=== PATIENT | female | born 1955 | race Caucasian/White ===

== ENCOUNTER 2017-06-24 02:51 | Observation (INO) | payer MEDICAID, MEDICARE ==
[~2017-06-24] VITALS: Ht 162.6 cm; Wt 77.6 kg
[2017-06-24] VITALS (18 sets, daily range): BP systolic 73–120; BP diastolic 55–86
[~2017-06-24 02:51] MED LIST: BUPR-474 PO; FLUO-202 PO; HYDR-4225 PO; LEVO75TA68 PO; MONT10TA PO; ZOLP-350 PO
[2017-06-24] MEDS ORDERED: MIDAZOLAM 2 MG/2 ML VIAL IVP PRN (06:15)
[2017-06-24] MEDS ORDERED: FAMOTIDINE 20 MG TAB PO ONE (06:15)
[2017-06-24] MEDS ORDERED: EPINEPHrine HCL 30 MG/30 ML ONE (06:57)
[2017-06-24] MEDS ORDERED: GELATIN SPONGE SZ 100 ONE (06:58)
[2017-06-24] MEDS ORDERED: BUPIV/EPI 0.25% 1:200,000 50ML INFIL ONE (06:58)
[2017-06-24] MEDS ORDERED: PHENYLEPHRINE 10 MG/1 ML VIAL ONE (07:00)
[2017-06-24] MEDS ORDERED: MIDAZOLAM 2 MG/2 ML VIAL ONE (07:06)
[2017-06-24] MEDS ORDERED: fentaNYL CITR 100 MCG/2 ML AMP ONE ×4 (07:40→10:54)
[2017-06-24] MEDS ORDERED: DEXAMETHASONE SOD PHOS 10MG/ML ONE (09:00)
[2017-06-24] MEDS ORDERED: PROPOFOL EMUL(*) 10MG/ML 20 ML 160 ML ONE (09:00)
[2017-06-24] MEDS ORDERED: ONDANSETRON 4 MG/2 ML VIAL ONE (09:00)
[2017-06-24] MEDS ORDERED: ROPIVACAINE 0.2% 20 ML VIAL ONE (09:00)
[2017-06-24] MEDS ORDERED: LABETALOL HCL 100 MG/20ML VIAL ONE (09:21)
[2017-06-24] MEDS ORDERED: ROPIVACAINE 0.2% 400 MG/200ML 250 ML CONINFUS ONE (10:00)
[2017-06-24] MEDS ORDERED: ceFAZolin(*) 2GM/D5W 50ML 50 ML IVPB ONE (10:30)
[2017-06-24] MEDS ORDERED: LIDOCAINE/SOD BICARB 8.4% SYR ID ONE (10:30)
[2017-06-24] MEDS ORDERED: NORMOSOL R SOLN(*) 1000 ML BAG 1,000 ML IV PRN (10:30)
[2017-06-24] MEDS ORDERED: FLUSH 10 ML SYR IVP PRN ×2 (11:45→11:50)
[2017-06-24] MEDS ORDERED: KCL/D5LR 20 MEQ/1000 ML PREMIX 1,000 ML IV PRN ×2 (11:45→11:50)
[2017-06-24] MEDS ORDERED: PROMETHAZINE 25 MG/ML 1 ML AMP IVP PRN ×2 (11:45→11:50)
[2017-06-24] MEDS ORDERED: MAGNESIUM HYDROXIDE* 30ML UDCP PO PRN ×2 (11:45→11:50)
[2017-06-24] MEDS ORDERED: diphenhydrAMINE 25 MG CAP PO PRN ×2 (11:45→11:50)
[2017-06-24] MEDS ORDERED: ACETAMINOPHEN 500 MG TAB PO PRN ×2 (11:45→11:50)
[2017-06-24] MEDS ORDERED: KETOROLAC 30 MG/ML VIAL IVP PRN ×2 (11:45→11:50)
[2017-06-24] MEDS ORDERED: ONDANSETRON 4 MG/2 ML VIAL IVP PRN (11:45)
[2017-06-24] MEDS ORDERED: MAGNESIUM CITRATE 300 ML BTL PO PRN ×2 (11:45→11:50)
[2017-06-24] MEDS ORDERED: BISACODYL 10 MG SUPP PR PRN ×2 (11:45→11:50)
--- NOTE | 2017-06-24 13:56 | OPERATIVE REPORT 1 ---
EVENT DATE: June 24, 2017 SURGEON: Avel Velazquez MD ANESTHESIOLOGIST: Ricki Michelle MD [employer] PROFESSOR: CHRISTIANO Dillon ANESTHESIA: General with a popliteal and iliac block. 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 POSTOPERATIVE DIAGNOSIS Significant pes plano valgus deformity with recurrent hallux valgus deformity after bunion surgery and mid foot arthritis. PROCEDURE PERFORMED Calcaneal osteotomy, lateral column lengthening with iliac crest bone graft and mid foot fusion with a Lapidus procedure and a modified Williamson bunionectomy. TOURNIQUET TIME Less than 2 hours. DESCRIPTION OF PROCEDURE Patient was brought to the operating room, placed in a supine position, had a bump placed under her right hip to align the right lower extremity. She was prepped and draped in normal sterile fashion using Prevail. Sterile stockinette , sterile U drape and sterile extremity drape were placed over the lower extremity. Stockinette was then sized, rolled above knee and held with a Coban. Four towels were placed around the iliac crest. It was then prepped and draped as well using Prevail. I then placed an Ioban over top of it. Once we had the extremity drape on, I made a hole in the extremity drape, and then placed another Ioban over top of that. First we did our iliac crest bone graft 2 cm above the ASIS. Skin was incised with a 15 blade down to subcutaneous tissue. Subcutaneous tissue was bluntly dissected down to the retinaculum. Retinaculum was sharply dissected using cautery off of the insertion of the iliac crest. Two Hohmanns were placed around the iliac crest to protect it. We measured out 1.5 cm of iliac crest. An oscillating saw was then used to make a tricortical graft without any difficulty. Once that was taken, we then used a curette to take any more bone graft we needed, and we got ample amount without any difficulty. I then placed a Gelfoam with epinephrine in. We then closed the retinaculum using 2-0 Vicryl, subcutaneous tissue using 3-0 Monocryl , and skin was with lynn. I then injected Marcaine with epi into the wound. At this point, we turned the tourniquet up to 300 mmHg. My first incision was made directly over the lateral aspect of the calcaneus 45 degrees from the plantar aspect of the foot. Skin was incised with 15 blade down to subcutaneous tissue. Subcutaneous tissue was bluntly dissected, making sure that we did not get the sural nerve involved. I did not see the sural nerve when we were bluntly dissecting down. Two Hohmanns were placed across the calcaneus. Large oscillating saw was then used to transect the calcaneus completely sagittally. Once that was done, I was able to move the calcaneus about a half a centimeter or a centimeter from lateral to medial. Once I had that done, I made a small poke hole in the bottom of the heel. Two partially threaded 6.5 screws were placed across the osteotomy to hold it in place. We had good bite with both of the screws and good compression at the osteotomy site. We brought fluoroscopy in, AP and lateral, to make sure the length was correct to make sure we had a good amount of translation of the calcaneus. At this point, I turned my attention to lateral column lengthening. Incision was made directly over the lateral column, bluntly dissected. When I got there, it looks at though they had tried to already do some type of lateral column lengthening. The bone graft crumbled completely out at me, and I was not able to identify where they had actually done the osteotomy, it just looked like there was kind of bone graft around the area, or in the sinus tarsi. It was very difficult to tell. Once that was all completely debrided, I placed two Hohmanns around the lateral column. At this point, I measured 1.1 cm from the joint, and this where I made my second osteotomy in parallel to the calcaneocuboid joint. Once I had that done, I placed a lamina lavatory attendant across it, and titrated out exactly where I wanted the midfoot to lie. Once I had it in a good position, I measured about 1 cm. We then took our iliac crest graft and we modified it to make it more triangular and only be 1 cm in length. We then were able to place it in. I was not able to get it completely all the way down, but about two-thirds of the graft was placed inside the osteotomy without any difficulty, and then we placed a non-lag 3.5 screw going from the calcaneocuboid joint across into the anterior process of the calcaneus. We were able to get the screw across the graft without any difficulty and hold it in position. AP and lateral of the foot were taken. It does show that we got a very good lengthening of the lateral column, though the graft was slightly protuberant, which we then shaved down with a rongeur on the outside of the foot. Once that was done, we turned our attention to the midfoot fusion Lapidus procedure. At this point, I made an incision directly over the first TMT joint and second intermetatarsal joint, bluntly dissected, moved the extensor tendon off laterally, was able to get down to the first TMT joint and into the intermetatarsal joint, which had marked scarring throughout it, and looked as though there had been a significant injury in the past here. I had to debride this area in order to get not only the cuneiform back together, but the first metatarsal over. I then made an osteotomy through the medial cuneiform in order so I could bring the first ray back into good alignment. At this point, when I realigned that, I placed a screw from the first metatarsal into the middle cuneiform, closing the intermetatarsal gap. At this point, I felt I had really good compression, not only of the inter Lisfranc joint, but of the first MTP joint, and did not feel like I needed a second screw in this to stabilize it. I did put a second screw from the first metatarsal in the second just to keep it from derotating, and getting some better alignment. Once I had those two screws in place, I did bone graft the first TMT joint and the intercuneiform joint and intermetatarsal joint. We brought fluoroscopy in AP and lateral. I did see that I did not get across that first TMT joint, but with that screw going into the middle cuneiform going from the first, there was incredible stability and compression, did not feel I needed a screw across that joint to get it to fuse. Screws were in good position. I then turned my attention to the modified Williamson, made an incision directly over the medial aspect of the first MTP joint. Skin was incised with a 15 blade down to subcutaneous tissues. Subcutaneous tissue was bluntly dissected down the retinaculum. It looked as though the retinaculum had already been debrided, and tried to be reefed. I then tried to do a reverse 7 incision across the retinaculum, which was very thin. I then made an incision on the lateral aspect of the first TMT joint, and bluntly dissected down to the intersesamoid ligament as well as the intermetatarsal ligament, which I incised, and I released the first TMT lateral joint line. Once I was able to do that, the toe came back into perfect position. I then repaired the retinaculum on the medial side using 3-0 Ethibond, and the reverse 7 incision tightening that up. I brought fluoroscopy in, found to have excellent alignment of the toe. Now the first MTP joint was slightly incongruent due to the prior osteotomy, but I had to do that in order to keep the toe from crossing over. We closed using 3-0 Monocryl and lynn. I used lynn at this juncture due to the fact that her skin was already poor from the prior incisions and felt that a subcuticular would not hold on her. Therefore, we used 3-0 Monocryl and lynn throughout the foot. Adaptic, 4x4's, big bulky Vigil dressing. Patient went to recovery, no complications. JOIE
[2017-06-24] MEDS ORDERED: ceFAZolin(*) 1 GM VIAL 1 GM in NS(*) 0.9% 100 ML ADDVANT BAG 100 ML IVPB SCH (15:00)
[2017-06-24] MEDS: ceFAZolin(*) 1 GM VIAL 1 GM in NS(*) 0.9% 100 ML ADDVANT BAG 100 ML IVPB SCH ×2 (15:27→23:51)
[2017-06-24] MEDS: ONDANSETRON 4 MG/2 ML VIAL IVP PRN (19:59)
[2017-06-25 03:40] VITALS: BP 97/63
[2017-06-25] MEDS: ONDANSETRON 4 MG/2 ML VIAL IVP PRN (03:47)
[2017-06-25 07:19] VITALS: BP 108/88
[2017-06-25] MEDS: ceFAZolin(*) 1 GM VIAL 1 GM in NS(*) 0.9% 100 ML ADDVANT BAG 100 ML IVPB SCH (07:22)
== END 2017-06-25 10:30 | disposition home or self-care (01) ==
LOC: OR 02:51 → MED 12:00
PROVIDERS: ADMIT Orthopaedic Surgery; ATTEND Orthopaedic Surgery
DX: M21.41 Flat foot [pes planus] (acquired), right foot (principal); M20.11 Hallux valgus (acquired), right foot; M19.071 Primary osteoarthritis, right ankle and foot
CPT/HCPCS: 28296; 28300; 76942; 97116; 97161; C1713; G0378; J0171; J0690; J1100; J1885; J2250; J2370; J2405; J2550; J2704; J2795; J3010; J3480; J3490; J7050

== ENCOUNTER 2018-04-16 00:52 | Day surgery (SDC) | payer MEDICARE, OTHER ==
[~2018-04-16] VITALS: Ht 162.6 cm; Wt 77.1 kg
[~2018-04-16 00:52] MED LIST changes: +BUPR-472 PO; +SUMA50TA34 PO
[2018-04-16 05:30] VITALS: BP 124/79
[2018-04-16] MEDS ORDERED: LIDOCAINE/SOD BICARB 8.4% SYR ID ONE (06:15)
[2018-04-16] MEDS ORDERED: NORMOSOL R SOLN(*) 1000 ML BAG 1,000 ML IV PRN (06:15)
[2018-04-16] MEDS ORDERED: MIDAZOLAM 2 MG/2 ML VIAL IVP PRN (06:15)
[2018-04-16] MEDS ORDERED: ceFAZolin(*) 1 GM VIAL 1 GM in NS(*) 0.9% 100 ML ADDVANT BAG 100 ML IVPB ONE (06:15)
[2018-04-16] MEDS ORDERED: FAMOTIDINE 20 MG TAB PO ONE (06:15)
[2018-04-16] MEDS ORDERED: ROPIVACAINE 0.2% 20 ML VIAL ONE (06:30)
[2018-04-16] MEDS ORDERED: fentaNYL CITR 100 MCG/2 ML AMP ONE (06:49)
[2018-04-16] MEDS ORDERED: PROPOFOL EMUL(*) 10MG/ML 20 ML 20 ML ONE (06:50)
[2018-04-16] MEDS ORDERED: ONDANSETRON 4 MG/2 ML VIAL ONE (06:50)
[2018-04-16] MEDS ORDERED: DEXAMETHASONE SOD PHOS 10MG/ML ONE (06:50)
[2018-04-16] MEDS ORDERED: LIDOCAINE MPF 1% 5 ML VIAL ONE (06:50)
[2018-04-16] MEDS ORDERED: KETAMINE HCL-NS 50 MG/5 ML SYR ONE (06:52)
[2018-04-16] MEDS ORDERED: BUPIV/EPI 0.25% 1:200,000 50ML INFIL ONE (06:52)
[2018-04-16] MEDS ORDERED: BUPIVACAINE 0.5% INJ 50ML VIAL INFIL ONE (06:57)
[2018-04-16] MEDS ORDERED: PROPOFOL EMUL(*) 10MG/ML 20 ML 60 ML ONE (07:01)
[2018-04-16] MEDS ORDERED: KETOROLAC 30 MG/ML VIAL ONE (08:02)
--- NOTE | 2018-04-16 08:32 | OPERATIVE REPORT 1 ---
EVENT DATE: April 16, 2018 SURGEON: Avel Velazquez MD ANESTHESIOLOGIST: Shaji Pierson MD ANESTHESIA: wood setter: CHRISTIANO Yun PREOPERATIVE DIAGNOSIS Retained painful hardware and retained stitch abscess. POSTOPERATIVE DIAGNOSIS Retained painful hardware and retained stitch abscess. PROCEDURE PERFORMED Removal of hardware as well as debridement of retained suture cyst. TOURNIQUET TIME Less than 30 minutes. ESTIMATED BLOOD LOSS Minimal. DESCRIPTION OF PROCEDURE The patient was brought to the operating room and placed in the supine position and a bump placed under the right hip to realign the right lower extremity. He was prepped and draped in normal sterile fashion using Prevail. Sterile stockinettes and U-drape were placed on the lower extremity. Stockinette was incised from above knee and held with Coban. Esmarch was then used to exsanguinate the lower extremity and tourniquet turned up to 300 mmHg. First incision was made directly over the dorsum of the first TMT joint. You could palpate the screw. A small incision was made. Blunt dissection was taken right down to the screw and we were able to remove the painful screw without any difficulty. We then made an incision directly over the top of the cyst on the medial eminence of the first MTP joint, bluntly dissected around the cyst. I found it to be a very hard solid cyst and as we got down to the base it was exactly that; that there was a stitch. The Ethibond had gotten encased in the scar. We were able to remove the whole stitch without any difficulty and remove the cyst that had the stitch present in it. Once we removed all of that, we were able to close using 3-0 Nylon in a horizontal stitch manner. We then injected 0.5% Marcaine without any difficulty. Adaptic 4 x 4's, big dressing. The patient went to recovery with no complications. JOIE
[2018-04-16 08:45] VITALS: BP 118/98
[2018-04-16 08:48] VITALS: BP 136/95
--- NOTE | 2018-04-16 09:24 | NUR ---
0845- PT. TRANSITIONED FROM FROM PHASE 1 TO PHASE 2. I KEPT CARE OF THE PT. PT. STATES THAT SHE NEEDS TO USE THE RESTROOM SO ORTHOSTATICS PREFORMED. 0850- PT. UP TO THE BATHROOM. 0853- PT. GETTING DRESSED. 0900- IV TAKEN OUT. AND PRESSURE DRESSING APPLIED. 0905- PT. ACCOMPANIED OUT BY IVELISSE HINOJOSA AND SON.
== END 2018-04-16 08:45 | disposition home or self-care (01) ==
LOC: OR 00:52
PROVIDERS: ATTEND Orthopaedic Surgery
DX: M79.5 Residual foreign body in soft tissue (principal)
CPT/HCPCS: 20680; A9270; J0690; J1100; J1885; J2001; J2405; J2704; J2795; J3010; J3490; J7050